=== PATIENT | female | born 1945 | race Caucasian/White ===

== ENCOUNTER 2024-10-26 10:05 | Outpatient (OUT) | payer MEDICARE, SELFPAY ==
--- OUTSIDE RECORDS SUMMARY | 2024-10-16 13:00 | XMS_ITS | Encounter Summary ---
Author Organization [facility] Address [address] [place] [address] Care Team Providers Care Decorator Inspector Name Role Phone Unavailable Primary Care Provider Unavailabl e Reason for Visit * Reason Comments Skin Check Follow-up Encounter Details Date Type Department Care Team (Late st Contact Info) Description 10/16/2024 1:00 PM EDT Office Visit [facility] [address] [facility] [address] [place] [phone] Camelia Dave APRN-CNP [address] [facility] [address] [place] [address] Other atopic dermatitis; Rhytides; Actinic keratosis; Lentigines Social History Tobacco Use Types Packs/Day Years Used Date Smoking Tobacco: Never Smokeless Tobacco: Never Comments Unknown Sex and Gender Information Value Date Recorded Sex Assigned at Not on file Legal Sex Female 7:40 PM EDT Gender Identity Not on file Sexual Orientation Not on file documented as of this encounter Progress Notes * BELA Rosales - 10/16/2024 1:00 PM EDT Skin Check Location: Face, arms and chest Dermatologic history: history of Actinic Keratosis, no history of skin cancer, no history of atypical moles Last visit: 1 year ago Follow up Diagnosis: Atopic Dermatitis Location: ears Last visit: 1 year ago Symptoms: denies Status: clear today Current treatment: TAC 0.1% cream Follow up Diagnosis: rhytides Location: face Last visit: 1 year ago Symptoms: denies Status: stable Current treatment: Tretinoin 0.05% lotion (needs refills) All pertinent medical history, medications, and allergies were reviewed. General Exam: alert, oriented to person, place, and time, normal affect, well appearing Unaccompanied Areas not examined despite medical recommendation: From the waist down A complete skin exam was offered, patient declined Scalp, Examined , exam limited by hair Right leg Not examined Head, Face Examined Left leg Not examined Neck Examined Right foot Not examined Chest Examined Left foot Not examined Back Not examined Buttocks Not examined Abdomen Not examined Digits,nails: Not examined Right arm Examined forearm only Left arm Examined forearm only Lymphatics: Not examined Hands Examined Skin Exam 1. OTHER ATOPIC DERMATITIS Left Ear, Left Preauricular Area, Right Ear Clear today Continue TAC 0.1% bid prn when flared, hold if smooth/asymptomatic. Encouraged daily moisturizing and gentle cleansers to prevent flares. Follow up as needed if no improvement or any worsening. Related Medications triamcinolone (Kenalog) 0.1 % cream Apply topically 2 (two) times a day as needed for rash 2. RHYTIDES Head - Anterior (Face) Fine lines and wrinkles Continue with Tretinoin lotion daily, sunscreen and sun protection encouraged. Related Medications Tretinoin (Altreno) 0.05 % lotion Apply thin layer to face at bedtime/30 days 3. ACTINIC KERATOSIS (4) Left Forehead, Left Upper Cutaneous Lip, Right Forehead, Right Tip of Nose Erythematous scaly papules Patient was counseled regarding these sun-induced growths that can develop into squamous cell carcinoma if left untreated. Discussed treatment with cryotherapy. It was emphasized that any treated lesions that fail to resolve should be re- evaluated. Cryotherapy performed today; see procedure note Diagnosis: Actinic keratosis Indication: Precancerous Location: see skin exam Consent: Verbal consent was obtained and risks were discussed, including, but not limited to risks of scarring, darker or environmental sampler pigmentary changes, recurrence, incomplete removal and infection. Method: Liquid nitrogen was used to treat the lesion(s) with two 5-10 second freeze-thaw cycles. Number of lesions treated: 4 Post-procedure instructions: Instructions were given orally and in writing. The office will be contacted if the lesion fails to resolve despite treatment, or if a side effect develops such as abnormal crusting, scabbing, redness or tenderness Cryotherapy, skin lesion - Left Forehead, Left Upper Cutaneous Lip, Right Forehead, Right Tip of Nose Related Medications fluorouracil (Efudex) 5 % cream Apply to nose twice a day x 14 days. Dispense 30 day supply but only use for 14 days. 4. LENTIGINES Head - Anterior (Face) Scattered bhakta macules in sun-exposed areas. The patient was informed that lentigines are benign pigmented lesions that occur on sun-exposed andsun-damaged skin. No treatment is necessary. Recommended regular use of broad spectrum sunscreen SPF 30 or higher Next Visit: 1 year documented in this encounter Plan of Treatment Upcoming Encounters Date Type Department Care Team (Late st Contact Info) Description 10/16/2025 1:00 PM EDT Office Visit [facility] [address] [place] [phone] Camelia Dave APRN-CNP [address] [place] [address] documented as of this encounter Procedures Procedure Name Priority Date/Time Associated Diagnosis Comments CRYOTHERAPY SKIN LESION Routine 10/16/2024 1:19 P M EDT Actinic keratosis documented in this encounter Results * Cryotherapy, skin lesion (10/16/2024 1:19 PM EDT) us Camelia CRAMER DERM PROCEDURE ORDERAB LES Final Result documented in this encounter Visit Diagnoses Diagnosis Other atopic dermatitis Rhytides Actinic keratosis Lentigines documented in this encounter
--- OUTSIDE RECORDS SUMMARY | 2024-10-26 10:13 | XMS_ITS | Encounter Summary ---
Author Organization [facility] Address [facility] [place] [address] Care Team Providers Care Ase Certified Technician Name Role Phone Luis E Andrew DO Primary Care Provider Pcp, No Primary Care Provider Unavailabl e Source Comments In the event this information is protected by the Federal Confidentiality of Alcohol and Drug AbusePatient Records regulations: The Federal rules restrict any use of the information to criminally investigate or prosecute any alcohol or drug abuse patient.[facility] Encounter Details Date Type Department Care Team (Latest Contact Info) Description 12/18/2002 Prob Sum Review Provider, Gabe Social History Tobacco Use Types Packs/Day Years Used Date Smoking Tobacco: Never Assessed Comments Unknown Sex and Gender Information Value Date Recorded Sex Assigned at Not on file Legal Sex Female 8:51 AM EST Gender Identity Not on file Sexual Orientation Not on file documented as of this encounter Plan of Treatment Not on file documented as of this encounter Visit Diagnoses Not on filedocumented in this encounter Care Teams Ase Certified Technician Relationship Specialty Start Date End Date Luis E Andrew DO [address] [address] PCP - General 11/30/02 09/19/21 Pcp, No PCP - General 09/20/21 04/07/22 documented as of this encounter
--- OUTSIDE RECORDS SUMMARY | 2024-10-26 10:13 | XMS_ITS | Clinical Summary ---
Author Organization [facility] Address [address] [place] [address] Care Team Providers Care Breaker Off Name Role Phone Unavailable Primary Care Provider Unavailabl e Allergies Active Allergy Reactions Criticality Noted Date Comments Myacins [Other] 12/20/2002 Penicillins 12/20/2002 rash Sulfa (Sulfonamide Antibiotics) 12/06 rash Medications NEXIUM 20MG CAPSULE Take one(1) tablet daily. 30 1 12/20/2002 Active CLIMARA 0.05MG/DAY PATCH once weekly 0 0 01/06/2003 Active HCTZ 12.5MG CAPSULE 1/2 daily 0 05/21/2003 Active Active Problems Problem Noted Date Diagnosed Date Symptomatic menopausal or female climacteric sta adri 12/20/2002 Social History Tobacco Use Types Packs/Day Years Used Date Smoking Tobacco: Never Assessed Comments No Sex and Gender Information Value Date Recorded Sex Assigned at Not on file Legal Sex Female 8:51 AM EST Gender Identity Not on file Sexual Orientation Not on file Last Filed Vital Signs Vital Sign Reading Time Taken Comments Blood Pressure 118/80 01/06/2003 10:30 AM EST Pulse 80 01/06/2003 10:30 AM EST Temperature 36.4 C (97.5 F) 01/06/2003 10:30 AM EST Respiratory Rate 16 01/06/2003 10:30 AM EST Oxygen Saturation - - Inhaled Oxygen Concentration - - Weight 62.6 kg (138 lb) 01/06/2003 10:30 AM EST Height 157.5 cm (5' 2 ) 01/06/2003 10:30 AM EST Body Mass Index 25.24 01/06/2003 10:30 AM EST Plan of Treatment Health Maintenance Due Date Last Done Comments Anxiety Screening 10/01/1961 Depression Screening 10/01/1961 DTaP,Tdap,Td Vaccine (1 - Tdap) 10/01/1962 Pneumococcal Vaccine: 50+ (1 of 1 - PCV) 10/01/1993 Shingrix Vaccine (1 of 2) 10/01/1993 Diabetes Screening 12/20/2005 12/20/2002 Bone Density Screening 10/01/2008 12/20/2002 RSV Vaccine (1 - 1-dose 75+ series) 10/01/2018 Advance Directive Discussion 03/08/2024 Influenza Vaccine (#1) 2024 Procedures Procedure Name Priority Date/Time Associated Diagnosis Comments BMD AP SPINE + HIP UNILATERAL 12/20/2002 1:59 PM EDT COMPREHENSIVE METABOLIC PANEL Routine 12/20/2002 11:10 AM EDT Enlargement Lymph Nodes from Last 3 Months or Most Recently Relevant to Health Maintenance Results * BMD AP SPINE + HIP UNILATERAL (12/20/2002 1:59 PM EDT) Dining Room Manager Report Text Exam [facility] SPINE+HIP[facility] IMPRESSION: 1. The bone density in this patient is in the diagnostic range of osteopenia according to world health organization criteria. These criteria are based on postmenopausal white female data and their application to other demographic groups is uncertain. 2. Follow-up study in 2 years is recommended as clinically indicated. 3. National osteoporosis Foundation recommendations: All patients should be evaluated for adequate calcium and vitamin D intake and be encouraged to participate in regular weight bearing and muscle strengthening exercise to reduce the risk of falls and fractures. Patients should also avoid tobacco smoking and keep alcohol intake moderate. Risk factors for osteoporotic fracture include: personal history of fracture as an adult, history of fracture in a first degree relative, race, advanced age, female sex, cigarette smoking, low body weight (<127lbs), alcoholism, and women with estrogen deficiency including early menopause (<age45) and prolonged premenopausal amenorrhea (>1year). These risk factors may confer additional risk for future fracture, independent of the above estimate, which is based on bone density alone. Pharmacological therapy is recommended to reduce fracture risk in women with BMD 2 standard deviations below the mean in the absence of risk factors and in women with BMD 1.5 standard deviations below the mean if other risk factors are present. All postmenopausal women should be counseled to consider hormone replacement therapy and offered guidance in weighing its risks and benefits. These recommendations are based on postmenopausal white females and their application to other demographic groups is uncertain. g/cm2. This is ... standard deviations ... young adult mean reference values. Current relative risk of spine fracture, (given the above bone density value) is increased ... times as compared to young adult normal risk (based on older, postmenopausal white female data). Comparison was made to the prior study from .... The prior value in the ... region measured ... g/cm2. There ... been a statistically significant .... Proximal femur: Bone density in the ... region is ... g/cm2. This is ... standard deviations ... young adult mean reference values. Current relative risk of hip fracture, (given the above bone density value) is increased ... times as compared to young adult normal risk (based on older, postmenopausal white female data). Comparison was made to the prior study from .... The prior value in the ... region measured ... g/cm2. There ... been a statistically significant .... IMPRESSION: 1. The bone density in this patient is in the diagnostic range of ... according to world health organization criteria. These criteria are based on postmenopausal white female data and their application to other demographic groups is uncertain. 2. Follow-up study in ... years is recommended as clinically indicated. 3. National osteoporosis Foundation recommendations: All patients should be evaluated for adequate calcium and vitamin D intake and be encouraged to participate in regular weight bearing and muscle strengthening exercise to reduce the risk of falls and fractures. Patients should also avoid tobacco smoking and keep alcohol intake moderate. Risk factors for osteoporotic fracture include: personal history of fracture as an adult, history of fracture in a first degree relative, race, advanced age, female sex, cigarette smoking, low body weight (<127lbs), alcoholism, and women with estrogen deficiency including early menopause (<age45) and prolonged premenopausal amenorrhea (>1year). These risk factors may confer additional risk for future fracture, independent of the above estimate, which is based on bone density alone. Pharmacological therapy is recommended to reduce fracture risk in women with BMD 2 standard deviations below the mean in the absence of risk factors and in women with BMD 1.5 standard deviations below the mean if other risk factors are present. All postmenopausal women should be counseled to consider hormone replacement therapy and offered guidance in weighing its risks and benefits. These recommendations are based on postmenopausal white females and their application to other demographic groups is uncertain. Lumbar Spine: Bone density from L1-L4 is Lumbar Spine: Bone density from L1-L4 is 0.884 g/cm2. This is 1.5 standard deviations below young adult mean reference values. Current relative risk of spine fracture, (given the above bone density value) is increased 3 times as compared to young adult normal risk (based on older, postmenopausal white female data). Proximal femur: Bone density in the left neck region is 0.703 g/cm2. This is 1.3 standard deviations below young adult mean reference values. Current relative risk of hip fracture, (given the above bone density value) is increased 3 times as compared to young adult normal risk (based on older, postmenopausal white female data). Principal [employer] Sheets Supervisor: AURELIO LOPEZ RADIOLOGY Anatomical Region Laterality Modality Other 12/20/2002 1:59 PM EDT Ari Wilson MD RADIOLOGY Final Result * COMP METABOLIC PANEL (12/20/2002 11:10 AM EDT) Protein, Total 7.3 6.0 - 8.4 g/dL [facility] Albumin 4.3 3.5 - 5.0 g/dL [facility] Calcium 10.2 8.5 - 10.5 mg/dL [facility] Bilirubin, Total 0.4 0.0 - 1.5 mg/dL [facility] Alkaline Phosphatase 115 40 - 150 U/L [facility] AST 33 7 - 40 U/L [facility] Glucose 81 65 - 110 mg/dL [facility] BUN 15 8 - 25 mg/dL [facility] Creatinine 0.7 0.7 - 1.4 mg/dL [facility] Sodium 145 132 - 148 mmol/L [facility] Potassium 4.3 3.5 - 5.0 mmol/L [facility] Chloride 107 98 - 110 mmol/L [facility] CO2 26 24 - 32 mmol/L [facility] Anion Gap 12 0 - 15 mmol/L [facility] ALT 24 0 - 45 U/L [facility] Blood specimen (specimen) BLOOD SPECIMEN / Unknown 12/20/2002 11:10 AM EDT Ari Wilson MD LABORATORY Final Result [facility] [address] [place] [address] from Last 3 Months or Most Recently Relevant to Health Maintenance Insurance [employer] P[employer]
--- OUTSIDE RECORDS SUMMARY | 2024-10-26 10:13 | XMS_ITS | Clinical Summary ---
Author Organization [facility] Address [address] [place] [address] Care Team Providers Care Assignment Agent Name Role Phone Unavailable Primary Care Provider Unavailabl e Allergies Active Allergy Reactions Criticality Noted Date Comments Penicillins 12/20/2002 rash Sulfa Antibiotics 12/20/2002 rash Medications lisinopril-hydr oCHLOROthiazide 20-25 MG tablet Take 1 tablet by mouth Daily 3 Active triamcinolone (Kenalog) 0.1 % creamIndication s:Other atopic dermatitis Apply topically 2 (two) times a day as needed for rash 80 g 11 4 Active fluorouracil (Efudex) 5 % creamIndication s:Actinic keratosis Apply to nose twice a day x 14 days. Dispense 30 day supply but only use for 14 days. 40 g 4 Active Tretinoin (Altreno) 0.05 % lotionIndicatio ns:Rhytides Apply thin layer to face at bedtime/30 days 45 g 11 5 Active Tretinoin (Altreno) 0.05 % lotionIndicatio ns:Rhytides Apply thin layer to face at bedtime 45 g 11 4 10/17/19 25 Discontinu ed(Reorder ) Active Problems No known active problems Encounters Date Type Department Care Team Description 10/16/2024 1:00 PM EDT [facility] [address] [facility] [address] [place] [address] Camelia Dave, SCREEN REPAIRER CRUSHER-EXCHANGE CONSULTANT Other atopic dermatitis; Rhytides; Actinic keratosis; Lentigines 10/16/2024 Bamboo flowsheet [facility] [address] [facility] [address] [place] [address] Camelia Dave APRN-CNP 10/16/2024 Travel from Last 3 Months Family History Medical History Relation Name Comments Melanoma Neg Hx Social History Tobacco Use Types Packs/Day Years Used Date Smoking Tobacco: Never Smokeless Tobacco: Never Comments Unknown Sex and Gender Information Value Date Recorded Sex Assigned at Not on file Legal Sex Female 7:40 PM EDT Gender Identity Not on file Sexual Orientation Not on file Plan of Treatment Upcoming Encounters Date Type Department Care Team (Late st Contact Info) Description 10/16/2025 1:00 PM EDT Office Visit [facility] [address] [place] [phone] Camelia Dave APRN-CNP [address] [place] [address] Health Maintenance Due Date Last Done Comments Pneumococcal Vaccine: 65+ Ye ars (1 of 1 - PCV) 10/01/1993 Influenza Vaccine (#1) 2024 3, 12/10/2021, 11/09/2020, Additional history exists Procedures Procedure Name Priority Date/Time Associated Diagnosis Comments CRYOTHERAPY SKIN LESION Routine 10/16/2024 1:19 P M EDT Actinic keratosis from Last 3 Months Results * Cryotherapy, skin lesion (10/16/2024 1:19 PM EDT) Camelia Dave APRN-EXCHANGE CONSULTANT DERM PROCEDURE ORDERAB LES Final Result from Last 3 Months Insurance MEDICARE [facility]
--- OUTSIDE RECORDS SUMMARY | 2024-10-26 10:13 | XMS_ITS | Encounter Summary ---
Author Organization [facility] Address [address] [place] [address] Care Team Providers Care Primary Health Care Nurse Name Role Phone Unavailable Primary Care Provider Unavailabl e Encounter Details Date Type Department Care Team (Latest Contact Info) Description 10/16/2024 Travel Social History Tobacco Use Types Packs/Day Years Used Date Smoking Tobacco: Never Smokeless Tobacco: Never Comments Unknown Sex and Gender Information Value Date Recorded Sex Assigned at Not on file Legal Sex Female 7:40 PM EDT Gender Identity Not on file Sexual Orientation Not on file documented as of this encounter Plan of Treatment Upcoming Encounters Date Type Department Care Team (Late st Contact Info) Description 10/16/2025 1:00 PM EDT Office Visit [facility] [address] [facility] [address] [place] [phone] Camelia Dave, PROPERTY VALUER-STEWARD/STEWARDESS RAILROAD DINING CAR [address] [facility] [address] [place] [address] documented as of this encounter Visit Diagnoses Not on filedocumented in this encounter
--- OUTSIDE RECORDS SUMMARY | 2024-10-26 10:13 | XMS_ITS | Encounter Summary ---
Author Organization [facility] Address [address] [place] [address] Care Team Providers Care Whale Trainer Name Role Phone Unavailable Primary Care Provider Unavailabl e Encounter Details Date Type Department Care Team (Late st Contact Info) Description 10/16/2024 Bamboo flowsheet [facility] [address] [place] [address] Camelia Dave SALES ACCOUNT ASSOCIATE-PHOTOGEOLOGIST [address] [place] [address] Social History Tobacco Use Types Packs/Day Years [...] Office Visit [facility] [address] [place] [address] Camelia Dave, SALES ACCOUNT ASSOCIATE-PHOTOGEOLOGIST [address] [place] [address] documented as of this encounter Visit Diagnoses Not on filedocumented in this encounter
[2024-10-26 11:35] LABS: Hematocrit 42.5 % (36.0-48.0); Hemoglobin 14.3 g/dL (12.0-16.0); Immature Granulocytes Abs Auto 0.01 10^3/uL (0.00-0.03); Immature Granulocytes Pct Auto 0.2 % (0.0-0.5); Lymphocytes Absolute Auto 1.2 10^3/uL (1.2-3.8); Mean Corpuscular HGB Conc 33.6 g/dL (29.9-35.2); Mean Corpuscular Hemoglobin 29.3 pg (26.7-34.0); Mean Corpuscular Volume 87.1 fL (81.0-99.0); Platelet Count 237 10^3/uL (150-450); Red Blood Count 4.88 10^6/uL (4.20-5.40); White Blood Count 6.0 10^3/uL (4.0-11.0)
[2024-10-26 11:49] LABS: Alanine Aminotransferase 20 U/L (14-59); Albumin Globulin Ratio 1.1; Albumin Level 3.6 g/dL (3.4-5.0); Alkaline Phosphatase 151 U/L (46-116); Anion Gap 7.7; Aspartate Amino Transferase 20 U/L (15-37); Blood Urea Nitrogen 8.0 mg/dL (7.0-18.0); Calcium 9.5 mg/dL (8.5-10.1); Carbon Dioxide 31.2 mmol/L (21.0-32.0); Chloride 104 mmol/L (98-107); Cholesterol 235 mg/dL (<=200); Estimated GFR (African America >60 (>=60 mL/min/1.73m^2); Estimated GFR (Non-African Ame >60 (>=60 mL/min/1.73m^2); Globulin 3.4 g/dL; Glucose 88 mg/dL (74-106); HDL Cholesterol 44 mg/dL (40-60); Potassium 3.9 mmol/L (3.5-5.1); Sodium 139 mmol/L (136-145); Thyroid Stimulating Hormone 1.036 uIU/mL (0.358-3.740); Total Protein 7.0 g/dL (6.4-8.2); Triglycerides 129 mg/dL (<=150); VLDL CHOLESTEROL 25.8 mg/dL
== END 2024-10-26 10:06 | disposition home or self-care (01) ==
LOC: LAB 10:11
PROVIDERS: PCP Internal Medicine; Visit Provider Internal Medicine
DX: I12.9 Hypertensive chronic kidney disease with stage 1 through stage 4 chronic kidney disease, or unspecified chronic kidney disease (principal); N18.31 Chronic kidney disease, stage 3a; R53.83 Other fatigue; E78.00 Pure hypercholesterolemia, unspecified
CPT/HCPCS: 36415; 80053; 80061; 84443; 85025